=== PATIENT | female | born 1960 | race Two or more races ===

== ENCOUNTER 2022-05-18 09:23 | Emergency (ER) | payer OTHER ==
[~2022-05-18] VITALS: Ht 152.4 cm; Wt 99.8 kg
[2022-05-18] MEDS ORDERED: SYNTHROID50 MCG (09:47)
[2022-05-18] MEDS ORDERED: MELOXICAM7.5 MG (09:47)
[2022-05-18] MEDS ORDERED: INNOPRAN XL80 MG (09:48)
[2022-05-18] MEDS ORDERED: ULTRAM50 MG PO (15:08)
== END 2022-05-18 15:26 | disposition home or self-care (01) ==
LOC: ER 09:23
DX: S43.005A Unspecified dislocation of left shoulder joint, initial encounter (principal); W18.2XXA Fall in (into) shower or empty bathtub, initial encounter; Y93.9 Activity, unspecified; Y92.9 Unspecified place or not applicable